=== PATIENT | male | born 1995 | race American Indian/Alaskan Native ===

== ENCOUNTER 2017-12-15 19:44 | Emergency (ER) | payer SELFPAY ==
[2017-12-15 20:17] VITALS: BP 123/65
== END 2017-12-16 06:08 | disposition left against medical advice (07) ==
LOC: ED 19:44
DX: R07.9 Chest pain, unspecified (principal); Z53.21 Procedure and treatment not carried out due to patient leaving prior to being seen by health care provider
CPT/HCPCS: 87400; 93005; 93010

== ENCOUNTER 2020-12-17 03:38 | Emergency (ER) | payer SELFPAY ==
[2020-12-17 03:50] VITALS: BP 139/91
--- NOTE | 2020-12-17 06:01 | Emergency Department Report ---
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 No testicular pain, no abdominal pain, no fever, chills, sweats. No hematemesis, no hematuria MD Complaint: dysuria Location: penis Radiation: none Severity: mild Quality: burning Consistency: constant Improves with: none Worsens with: none discharge. denies: nausea/vomiting, incontinence - Related Data Previous Rx's Medication Instructions Recorded Last Taken Type Azithromycin [Zithromax TAB] 1,000 mg PO ONCE #2 tablet 12/17/20 Unknown Rx DOXYCYCLINE Hyclate [Vibramycin 100 mg PO BID #28 capsule 12/17/20 Unknown Rx CAP] ceFIXime [Cefixime] 800 mg PO ONCE #2 capsule 12/17/20 Unknown Rx metroNIDAZOLE [Flagyl] 2,000 mg PO ONCE #4 tablet 12/17/20 Unknown Rx Allergies Allergy/AdvReac Type Severity Reaction Status Date / Time No Known Allergies Allergy Verified 12/15/17 20:13 ED Review of Systems ROS: Stated complaint: BURNING SENSATION ON PENIS Other details as noted in HPI Comment: All other systems reviewed and negative ED Past Medical Hx - Past Medical History Previous Medical History?: Yes Additional medical history: Bronchitis - Surgical History Past Surgical History?: No - Social History Smoking Status: Current Every Day Smoker Substance Use Type: Alcohol, Marijuana - Medications Home Medications: Home Medications Medication Instructions Recorded Confirmed Last Taken Type Azithromycin [Zithromax TAB] 1,000 mg PO ONCE #2 tablet 12/17/20 Unknown Rx DOXYCYCLINE Hyclate [Vibramycin 100 mg PO BID #28 capsule 12/17/20 Unknown Rx CAP] ceFIXime [Cefixime] 800 mg PO ONCE #2 capsule 12/17/20 Unknown Rx metroNIDAZOLE [Flagyl] 2,000 mg PO ONCE #4 tablet 12/17/20 Unknown Rx ED Physical Exam - General Limitations: No Limitations General appearance: alert, in no apparent distress - Head Head exam: Present: atraumatic, normocephalic - Eye Eye exam: Present: normal appearance, PERRL, EOMI Pupils: Present: normal accommodation - ENT ENT exam: Present: normal exam, normal orophraynx, mucous membranes moist - Neck Neck exam: Present: normal inspection - Respiratory Respiratory exam: Present: normal lung sounds bilaterally. Absent: respiratory distress, rales, rhonchi, chest wall tenderness - Cardiovascular Cardiovascular Exam: Present: regular rate, normal rhythm. Absent: systolic murmur, diastolic murmur, rubs, gallop - GI/Abdominal GI/Abdominal exam: Present: soft, normal bowel sounds - Rectal Rectal exam: Present: deferred - Extremities Exam Extremities exam: Present: normal inspection, full ROM, normal capillary refill - Back Exam Back exam: Present: normal inspection - Neurological Exam Neurological exam: Present: alert, oriented X3 - Psychiatric Psychiatric exam: Present: normal affect, normal mood - Skin Skin exam: Present: warm, dry, intact, normal color. Absent: rash ED Course Vital Signs 12/17/20 03:46 Temperature 97.2 F L Pulse Rate 90 Respiratory 18 Rate Blood Pressure 139/91 O2 Sat by Pulse 98 Oximetry Critical care attestation.: If time is entered above; I have spent that time in minutes in the direct care of this critically ill patient, excluding procedure time. ED Disposition Clinical Impression: Dysuria, Possible exposure to STD Disposition: DC-01 TO HOME OR SELFCARE Is pt being admited?: No Does the pt Need Aspirin: No Condition: Stable Instructions: Safe Sex, Trichomoniasis, Dysuria Prescriptions: ceFIXime [Cefixime] 800 mg PO ONCE #2 capsule metroNIDAZOLE [Flagyl] 2,000 mg PO ONCE #4 tablet DOXYCYCLINE Hyclate [Vibramycin CAP] 100 mg PO BID #28 capsule Azithromycin [Zithromax TAB] 1,000 mg PO ONCE #2 tablet Referrals: PRIMARY CARE,MD [Primary Care Provider] - 3-5 Days [facility] [Outside] - 3-5 Days
== END 2020-12-17 06:35 | disposition home or self-care (01) ==
LOC: ED 03:38
DX: R30.0 Dysuria (principal); Z20.2 Contact with and (suspected) exposure to infections with a predominantly sexual mode of transmission; F17.200 Nicotine dependence, unspecified, uncomplicated; F12.10 Cannabis abuse, uncomplicated; Z79.899 Other long term (current) drug therapy
CPT/HCPCS: 99282

== ENCOUNTER 2022-04-08 09:33 | Emergency (ER) | payer SELFPAY ==
[2022-04-08 10:10] VITALS: BP 118/55
[2022-04-08] MEDS ORDERED: LIDOCAINE-MPF (1%) 10 MG/1 ML VIAL 5 ML INFILTRATI ONE (10:55)
--- NOTE | 2022-04-08 10:58 | Emergency Department Report ---
ED Dysuria HPI - HPI Chief Complaint: Urogenital-Male Stated Complaint: PAIN/BLISTERS ON BODY Time Seen by Provider: 04/08/22 10:50 Duration: 2 Days Location of Discomfort: Suprapubic Symptoms: Dysuria: Yes, Frequency: No, Suprapubic Pain: No, Flank Pain: No, Fever: No, Hematuria: No, Abdominal Pain: No, Previous UTI's: No Other History: Patient is a 26-year-old male that comes to the emergency room complaining of tingling with urination. He states that he had sex with a new female and 2 days later developed the dysuria. The females with him in the emergency room. The female was sent from the urgent care for suspected PID. Patient being empirically treated for STD. He has no lesions or bumps on exam. ED Review of Systems ROS: Stated complaint: PAIN/BLISTERS ON BODY Other details as noted in HPI Comment: All other systems reviewed and negative ED Past Medical Hx - Past Medical History Previous Medical History?: No Additional medical history: Bronchitis - Surgical History Past Surgical History?: No - Family History Family history: no significant - Social History Smoking Status: Current Every Day Smoker Substance Use Type: Alcohol, Marijuana - Medications Home Medications: Home Medications Medication Instructions Recorded Confirmed Last Taken Type Azithromycin [Zithromax Z-BAUTISTA] 1,000 mg PO ONCE #4 04/08/22 Unknown Rx metroNIDAZOLE [Flagyl] 2,000 mg PO ONCE #4 tab 04/08/22 Unknown Rx Dysuria Exam - Exam General: Vital signs noted. No distress. Alert and acting appropriately. Exam: Yes Moist Mucous Membranes, No CVA Tenderness, No Abdominal Tenderness, No Rigidity or Guarding ED Course Vital Signs 04/08/22 10:07 Temperature 97.8 F Pulse Rate 78 Respiratory 16 Rate Blood Pressure 118/55 [Right] O2 Sat by Pulse 99 Oximetry ED Medical Decision Making - Medical Decision Making Patient being empirically treated for STD given his exposure. Given a gram of Rocephin in the ER. Will discharge home with azithromycin and Flagyl Discussed safe sex with patient. Patient being discharged home with discharge plan of care including diet, activity, medications and follow-up. He verbalizes understanding of plan of care Vital Signs 04/08/22 10:07 Temperature 97.8 F Pulse Rate 78 Respiratory 16 Rate Blood Pressure 118/55 [Right] O2 Sat by Pulse 99 Oximetry - Differential Diagnosis known sti exposure Critical care attestation.: If time is entered above; I have spent that time in minutes in the direct care of this critically ill patient, excluding procedure time. ED Disposition Clinical Impression: Concern about STD in male without diagnosis, STD exposure Disposition: 01 HOME / SELF CARE / HOMELESS Is pt being admited?: No Does the pt Need Aspirin: No Condition: Stable Instructions: Safe Sex Additional Instructions: Take all medications that I have given you prescriptions for today at 1 time Safe sex Follow-up with PCP next week to make sure this is gone away. Have given you referral below Prescriptions: metroNIDAZOLE [Flagyl] 2,000 mg PO ONCE #4 tab Azithromycin [Zithromax Z-BAUTISTA] 1,000 mg PO ONCE #4 Referrals: DILLAN AARON MD [Staff Physician] - 3-5 Days Time of Disposition: 10:57
== END 2022-04-08 12:13 | disposition home or self-care (01) ==
LOC: ED 09:33
DX: Z20.2 Contact with and (suspected) exposure to infections with a predominantly sexual mode of transmission (principal); F17.200 Nicotine dependence, unspecified, uncomplicated; F10.20 Alcohol dependence, uncomplicated; F12.90 Cannabis use, unspecified, uncomplicated
CPT/HCPCS: 96372; 99282; J0696; J3490